=== PATIENT | female | born 2000 | race American Indian/Alaskan Native ===

== ENCOUNTER 2021-12-26 14:57 | Emergency (ER) | payer MEDICAID ==
[~2021-12-26] VITALS: Ht 167.6 cm; Wt 65.0 kg
[~2021-12-26 14:57] MED LIST: ONDA4TAB6 PO
[2021-12-26 16:02] VITALS: BP 117/78
== END 2021-12-26 17:21 | disposition left against medical advice (07) ==
LOC: ER 14:58
DX: M54.50 Low back pain, unspecified (principal); R10.9 Unspecified abdominal pain; Z53.21 Procedure and treatment not carried out due to patient leaving prior to being seen by health care provider

== ENCOUNTER 2023-01-22 20:39 | Emergency (ER) | payer MEDICAID ==
[~2023-01-22] VITALS: Ht 170.2 cm; Wt 56.0 kg
[2023-01-22 22:16] LABS: BASOPHILS # (AUTO) 0.1 X10'3 (0-0.2); BASOPHILS % (AUTO) 0.5 % (0-1); EOSINOPHILS % (AUTO) 0.3 % (0-6); HEMATOCRIT 47.4 % (35.0-45.0); HEMOGLOBIN 15.7 g/dl (12.0-16.0); LYMPHOCYTES # (AUTO) 2.5 X10'3 (1.1-4.8); LYMPHOCYTES % (AUTO) 17.4 % (21-51); MEAN CORPUSCULAR HEMOGLOBIN 28.7 PG (27.0-31.0); NEUTROPHILS # (AUTO) 10.6 X10'3 (1.8-7.7); NEUTROPHILS % (AUTO) 74.8 % (42-75); PLATELET COUNT 332 X10'3 (140-440); RED BLOOD COUNT 5.45 X10'6 (4.20-5.60); RED CELL DISTRIBUTION WIDTH 14.2 % (11.5-14.5); WHITE BLOOD COUNT 14.1 X10'3 (4.5-11.0)
[2023-01-23 00:28] VITALS: TEMP 98.5
[2023-01-23 00:31] LABS: URINE HCG NEGATIVE (NEG)
[2023-01-23 00:35] LABS: BILIRUBIN,URINE NEGATIVE (Neg); CLARITY,URINE SLIGHTLY CLOUDY (Clear); COLOR,URINE YELLOW (Yellow); GLUCOSE, URINE NEGATIVE (Neg); KETONES,URINE 15 mg/dl (Neg); LEUKOCYTE ESTERASE ,URINE NEGATIVE (Neg); NITRITES, URINE NEGATIVE (Neg); OCCULT BLOOD,URINE NEGATIVE (Neg); PH,URINE 6.5 (4.8-8.0); PROTEIN,URINE 100 mg/dl (Neg); UROBILINOGEN,URINE 0.2 E.U/dL (0.2-1.0)
[2023-01-23 00:36] LABS: UA COLLECTION TYPE CLN CATCH MIDSTREAM
[2023-01-23 00:53] LABS: BACTERIA,URINE NONE SEEN /HPF (Neg); MUCUS STRANDS FEW /LPF (Neg); RBC,URINE 0-2 /HPF (0-2); SQUAMOUS EPITHELIAL CELL,UR MANY /LPF (FEW); WBC,URINE 0-4 /HPF (0-4)
[2023-01-23 01:25] LABS: ALANINE AMINOTRANSFERASE 17 U/L (12-78); ALBUMIN 4.8 G/DL (3.4-5.0); ALBUMIN/GLOBULIN RATIO 1.3 (1.1-1.5); ALKALINE PHOSPHATASE 90 IU/L (46-116); ANION GAP 18 (8-16); ASPARTATE AMINO TRANSFERASE 11 U/L (10-37); BILIRUBIN,TOTAL 0.8 MG/DL (0.1-1.0); BLOOD UREA NITROGEN 8 MG/DL (7-18); BUN/CREATININE RATIO 7.4 (10.0-20.0); CALCIUM 10.6 MG/DL (8.5-10.1); CHLORIDE 103 MMOL/L (99-107); CREATININE 1.08 MG/DL (0.40-0.90); GLUCOSE 73 MG/DL (70-104); POTASSIUM 3.5 MMOL/L (3.5-5.1); SODIUM 143 MMOL/L (135-145); TOTAL PROTEIN 8.5 G/DL (6.4-8.2); eCRCL 73 ML/MIN; eGFR 64 ML/MIN
[2023-01-23 01:27] LABS: LIPASE < 50 U/L (73-393)
[2023-01-23] MEDS ORDERED: ondansetron/PF 4mg/2ml inj IV ONE (01:50)
[2023-01-23] MEDS ORDERED: normal saline 1000ML IV soln IVB ONE (01:50)
[2023-01-23] MEDS ORDERED: morphine 4 MG/ML inj SYRINge IV PRN (01:50)
[2023-01-23 05:07] VITALS: BP 108/64; PULSE 54; RESP 18; O2SAT 96
== END 2023-01-23 06:00 | disposition home or self-care (01) ==
LOC: ER 20:40
DX: S39.012A Strain of muscle, fascia and tendon of lower back, initial encounter (principal); R11.10 Vomiting, unspecified; R10.9 Unspecified abdominal pain; G43.909 Migraine, unspecified, not intractable, without status migrainosus; Z88.8 Allergy status to other drugs, medicaments and biological substances; Z79.899 Other long term (current) drug therapy; X58.XXXA Exposure to other specified factors, initial encounter; Y93.89 Activity, other specified; Y92.89 Other specified places as the place of occurrence of the external cause; Y99.8 Other external cause status
CPT/HCPCS: 36415; 74176; 80053; 81001; 81025; 83690; 85025; 96374; 99285; J2405; J7030; J2270

== ENCOUNTER 2023-03-08 02:19 | Emergency (ER) | payer MEDICAID ==
[~2023-03-08] VITALS: Ht 170.2 cm; Wt 68.2 kg
[2023-03-08 02:21] VITALS: BP 142/94; RESP 20; O2SAT 96
[2023-03-08] MEDS ORDERED: ondansetron/PF 4mg/2ml inj IV ONE (03:30)
[2023-03-08] MEDS ORDERED: normal saline 1000ML IV soln IVB ONE (03:30)
== END 2023-03-08 05:37 | disposition left against medical advice (07) ==
LOC: ER 02:20
DX: F10.129 Alcohol abuse with intoxication, unspecified (principal); Z88.8 Allergy status to other drugs, medicaments and biological substances; Z79.899 Other long term (current) drug therapy; Y90.9 Presence of alcohol in blood, level not specified
CPT/HCPCS: 36415; 80320; 99283; J7030

== ENCOUNTER 2023-07-16 19:20 | Emergency (ER) | payer MEDICAID ==
[~2023-07-16] VITALS: Ht 170.2 cm; Wt 73.0 kg
[2023-07-16] MEDS ORDERED: dexamethasone sod phosphate 10mg/ml inj IM STA (21:20)
[2023-07-16] MEDS ORDERED: ketorolac trometh inj. 60 MG/2 ML VIAL IM ONE (21:20)
[2023-07-16] MEDS ORDERED: PRED20TA PO (21:24)
[2023-07-16] MEDS ORDERED: ALBU8HFA INH (21:24)
[2023-07-16] MEDS ORDERED: PROM118S5 PO (21:24)
[2023-07-16 21:41] VITALS: BP 130/98; PULSE 67; RESP 16; TEMP 98; O2SAT 99
== END 2023-07-16 21:42 | disposition home or self-care (01) ==
LOC: ER 19:20
DX: M94.0 Chondrocostal junction syndrome [Tietze] (principal); J06.9 Acute upper respiratory infection, unspecified; Z88.8 Allergy status to other drugs, medicaments and biological substances; Z79.899 Other long term (current) drug therapy
CPT/HCPCS: 71101; 96372; 99284; J1100; J1885

== ENCOUNTER 2023-10-06 19:33 | Emergency (ER) | payer MEDICAID ==
[~2023-10-06] VITALS: Ht 170.2 cm; Wt 71.9 kg
[2023-10-06 19:53] LABS: BASOPHILS # (AUTO) 0.1 X10'3 (0-0.2); BASOPHILS % (AUTO) 0.9 % (0-1); EOSINOPHILS % (AUTO) 0.5 % (0-6); HEMATOCRIT 45.4 % (35.0-45.0); HEMOGLOBIN 15.5 g/dl (12.0-16.0); LYMPHOCYTES # (AUTO) 1.9 X10'3 (1.1-4.8); LYMPHOCYTES % (AUTO) 20.6 % (21-51); MEAN CORPUSCULAR HEMOGLOBIN 29.7 PG (27.0-31.0); MEAN CORPUSCULAR VOLUME 87.3 FL (78-98); MEAN PLATELET VOLUME 7.7 FL (7.4-10.4); MONOCYTES # (AUTO) 0.7 X10'3 (0-0.9); MONOCYTES % (AUTO) 7.4 % (2-12); NEUTROPHILS # (AUTO) 6.6 X10'3 (1.8-7.7); NEUTROPHILS % (AUTO) 70.6 % (42-75); PLATELET COUNT 311 X10'3 (140-440); RED BLOOD COUNT 5.21 X10'6 (4.20-5.60); RED CELL DISTRIBUTION WIDTH 14.5 % (11.5-14.5); WHITE BLOOD COUNT 9.3 X10'3 (4.5-11.0)
[2023-10-06 20:26] LABS: ALANINE AMINOTRANSFERASE 17 U/L (12-78); ALBUMIN 3.9 G/DL (3.4-5.0); ALKALINE PHOSPHATASE 98 IU/L (46-116); ANION GAP 10 (8-16); ASPARTATE AMINO TRANSFERASE 12 U/L (10-37); BILIRUBIN,TOTAL 0.8 MG/DL (0.1-1.0); BLOOD UREA NITROGEN 7 MG/DL (7-18); BUN/CREATININE RATIO 6.6 (10.0-20.0); CALCIUM 9.5 MG/DL (8.5-10.1); CHLORIDE 101 MMOL/L (99-107); CREATININE 1.06 MG/DL (0.40-0.90); GLUCOSE 132 MG/DL (70-104); POTASSIUM 3.3 MMOL/L (3.5-5.1); PRO BRAIN NATRIURETIC PEPTIDE 39 PG/ML (0-125); SODIUM 140 MMOL/L (135-145); TOTAL CARBON DIOXIDE 29.1 MMOL/L (24-32); TOTAL PROTEIN 7.9 G/DL (6.4-8.2); eCRCL 81 ML/MIN; eGFR 65 ML/MIN
[2023-10-06 22:10] VITALS: BP 128/84; PULSE 87; RESP 17; TEMP 98; O2SAT 99
== END 2023-10-06 22:14 | disposition home or self-care (01) ==
LOC: ER 19:34
DX: R07.89 Other chest pain (principal); Z88.8 Allergy status to other drugs, medicaments and biological substances; Z79.899 Other long term (current) drug therapy
CPT/HCPCS: 36415; 71045; 80053; 83880; 84484; 85025; 93005; 99285